=== PATIENT | female | born 1980 | race Caucasian/White ===

== ENCOUNTER 2018-08-04 13:23 | Emergency (ER) | payer MEDICAID ==
[2018-08-04 14:46] LABS: URINE BLOOD (Dip) POC 1+ (NEGATIVE); URINE GLUCOSE (Dip) POC Negative (NEGATIVE); URINE KETONES (Dip) POC Trace (NEGATIVE); URINE LEUKOCYTE EST (Dip) POC Negative (NEGATIVE); URINE NITRITE (Dip) POC Negative (NEGATIVE); URINE TOTAL PROTEIN POC Negative (NEGATIVE)
[2018-08-04 14:46] LABS: URINE PH (Dip) POC 5.5 (5.0-8.5)
[2018-08-04] MEDS: KETOROLAC 30 MG INJ IM (15:15)
== END 2018-08-04 15:31 | disposition home or self-care (01) ==
LOC: FTE 13:23
DX: M25.561 Pain in right knee (principal); M25.562 Pain in left knee
CPT/HCPCS: 73562; 73562-50; 81003; 81025; 96372; 99284-25